=== PATIENT | male | born 1995 | race Caucasian/White ===

== ENCOUNTER 2017-02-19 12:42 | Emergency (ER) | payer OTHER ==
[~2017-02-19] VITALS: Ht 180.3 cm; Wt 79.4 kg
[2017-02-19] MEDS ORDERED: TETRACAINE 0.5% OPHTH SOLN 4ML OD ONE (14:15)
[2017-02-19] MEDS ORDERED: FLUORESCEIN OPHTH 1 MG STRIP OD ONE (14:15)
[2017-02-19] MEDS ORDERED: IRRIGATION OPHTH SOLN (EYE WASH) 120ML OD ONE (14:30)
[2017-02-19 15:10] VITALS: BP 126/90
== END 2017-02-19 15:17 | disposition home or self-care (01) ==
LOC: M ED 14:07
DX: T15.91XA Foreign body on external eye, part unspecified, right eye, initial encounter (principal); Y92.89 Other specified places as the place of occurrence of the external cause